=== PATIENT | female | born 1990 | race Caucasian/White ===

== ENCOUNTER 2018-09-04 20:00 | Emergency (ER) | payer SELFPAY ==
[2018-09-04] MEDS ORDERED: 0.9 % SODIUM CHLORIDE 1,000 ML IV ONE (20:25)
[2018-09-04 20:55] VITALS: BP 136/107
== END 2018-09-04 20:42 | disposition left against medical advice (07) ==
LOC: ED 20:00
DX: Z53.21 Procedure and treatment not carried out due to patient leaving prior to being seen by health care provider (principal)
CPT/HCPCS: 80053